=== PATIENT | female | born 1990 | race Caucasian/White ===

== ENCOUNTER 2019-01-02 13:35 | Inpatient (IN) | payer SELFPAY ==
[2019-01-02 12:52] VITALS: BMI 26.7
[2019-01-02 13:57] VITALS: BMI 26.6
[2019-01-02] MEDS: Lactated Ringers 1,000 ML 50 ML IV (15:12)
[2019-01-02] MEDS: Oxytocin 30 units/NS 500 ml 30 UNITS/500 ML IV.SOLN IV (15:13)
[2019-01-02] MEDS: 0.9% Normal Saline 100 ML IV.SOLN. INTRA-UTER (15:30)
[2019-01-02 15:36] LABS: Hematocrit 37.1 % (37-47); Hemoglobin 12.3 g/dl (12.0-15.0); Mean Corp Hgb Conc 33.2 g/gl (32-36); Mean Corpuscular Hgb 30.8 pg (27.0-32.0); Mean Platelet Vol. 10.5 fl (6.2-12.0); Platelet Count 166 K/mm3 (150-450); RBC Distribution Width CV 14.1 % (11.6-14.6); Red Blood Count 3.99 M/mm3 (4.2-5.4)
[2019-01-02 15:37] LABS: Scan Indicated on CBC? Y/N NO
[2019-01-02 16:01] LABS: Hemoglobin A1c 4.8 % (4.2-6.3)
[2019-01-02 16:14] LABS: Rubella IgG 27.4 IU/mL
[2019-01-02] MEDS: Nalbuphine 10 MG/ML Ampul IV (20:52)
--- NOTE | 2019-01-02 23:20 | PCM.HP.OB ---
- Problem List (1) IUFD at 20 weeks or more of gestation Status: Acute History Date of Admission: 01/02/19 Final JULIA: 01/27/19 Gestational age: 36 Weeks and 3 Days History of this : This is a 28 year-old, at 36 weeks gestational age presents with decreased movement and suspected IUFD by her displayer merchandise Mami Bhatia. She denies any vaginal bleeding and has had care by her displayer merchandise, but no formal ultrasounds, bloodwork, or testing in the . she denies any complications. she was scanned in the office and no fht were seen and the fetus was measuring 2-3 weeks behind and with oligohydramnios. Medical History: Medical History (Last Updated 01/02/19 @ 12:59 by Sharla Briggs) No significant medical problems Surgical History: Surgical History (Last Updated 01/02/19 @ 12:59 by Sharla Briggs) No history of previous surgery Allergies No Known Allergies Allergy (Unverified 01/02/19 12:53) Home Medications: Home Medications Vits [Prenatabs FA] 1 tablet PO DAILY 01/02/19 Smoking Status: Never smoker Alcohol: None Number of Fetus(es): 1 Heart Tracing: none History Past Pregnancies: Past Pregnancies 3 previous term home deliveries spontaneous labor Expected Delivery Method: Spontaneous Vaginal Review of Systems Constitutional: Denies: Fever, Malaise Eyes: Denies: Blurred vision, Vision Change HEENT: Denies: Head Aches, Visual Changes Cardiovascular: Denies: Chest Pain, Palpitations Respiratory: Denies: Cough, Shortness of Breath, Wheezing Gastrointestinal: Denies: Abdominal Pain, Diarrhea, Nausea, Vomiting Genitourinary: Denies: Dysuria, Hematuria Musculoskeletal: Denies: Joint Pain, Muscle pain Skin: Denies: Lesions, Rash Neurological: Denies: Blurred vision, Focal weakness, Headaches Psychiatric: Denies: Anxiety, Depression Endocrine: Denies: Heat/ Cold Intolerance Hematologic/ Lymphatic: Denies: Easy Bruising, Easy Bleeding Physical Exam General: Alert, Cooperative, No apparent distress HEENT: Atraumatic, Normocephalic. Negative for: Thyromegaly, Lymphadenopathy Cardiovascular: Regular rate Lungs: Normal air movement Abdomen: Soft, Non Tender, Gravid Neurological: Deep Tendon Reflexes 2+/4 and Symmetrical, Neuro grossly intact. Negative for: Clonus SERVICE UNIT OPERATOR OIL WELL: Normal external genitalia. Negative for: Vulvar lesions Estimated gestational size: Small for gestational age Presentation: Cephalic Cervix Dilation (cm): 1 Assessment/Plan All Active Problems (Last Updated 01/02/19 @ 12:59 by Sharla Briggs) IUFD at 20 weeks or more of gestation (Acute) This is a 28 year-old, at 36 weeks gestational age presents with IUFD at 36 weeks discussed workup and routine testing, patient declined all but cbc, t and s, rubella, apl testing, hga1c, k b testing and placental pathology. pit and fb, and epi if desired.
--- NOTE | 2019-01-02 23:24 | HP.PCM_ITS ---
- Problem List (1) IUFD at 20 weeks or more of gestation Status: Acute History Date of Admission: 01/02/19 Final JULIA: 01/27/19 Gestational age: 36 Weeks and 3 Days History of this : This is a 28 year-old, at 36 weeks gestational age presents with decreased movement and suspected IUFD by her drainlayer Mami Bhatia. She denies any vaginal bleeding and has had care by her drainlayer, but no formal ultrasounds, bloodwork, or testing in the . she denies any complications. she was scanned in the office and no fht were seen and the fetus was measuring 2-3 weeks behind and with oligohydramnios. Medical History: Medical History (Last Updated 01/02/19 @ 12:59 by Sharla Briggs) No significant medical problems Surgical History: Surgical History (Last Updated 01/02/19 @ 12:59 by Sharla Briggs) No history of previous surgery Allergies No Known Allergies Allergy (Unverified 01/02/19 12:53) Home Medications: Home Medications Vits [Prenatabs FA] 1 tablet PO DAILY 01/02/19 Smoking Status: Never smoker Alcohol: None Number of Fetus(es): 1 Heart Tracing: none History Past Pregnancies: Past Pregnancies 3 previous term home deliveries spontaneous labor Expected Delivery Method: Spontaneous Vaginal Review of Systems Constitutional: Denies: Fever, Malaise Eyes: Denies: Blurred vision, Vision Change HEENT: Denies: Head Aches, Visual Changes Cardiovascular: Denies: Chest Pain, Palpitations Respiratory: Denies: Cough, Shortness of Breath, Wheezing Gastrointestinal: Denies: Abdominal Pain, Diarrhea, Nausea, Vomiting Genitourinary: Denies: Dysuria, Hematuria Musculoskeletal: Denies: Joint Pain, Muscle pain Skin: Denies: Lesions, Rash Neurological: Denies: Blurred vision, Focal weakness, Headaches Psychiatric: Denies: Anxiety, Depression Endocrine: Denies: Heat/ Cold Intolerance Hematologic/ Lymphatic: Denies: Easy Bruising, Easy Bleeding Physical Exam General: Alert, Cooperative, No apparent distress HEENT: Atraumatic, Normocephalic. Negative for: Thyromegaly, Lymphadenopathy Cardiovascular: Regular rate Lungs: Normal air movement Abdomen: Soft, Non Tender, Gravid Neurological: Deep Tendon Reflexes 2+/4 and Symmetrical, Neuro grossly intact. Negative for: Clonus BIOMEDICAL ENGINEERING TECHNOLOGIST: Normal external genitalia. Negative for: Vulvar lesions Estimated gestational size: Small for gestational age Presentation: Cephalic Cervix Dilation (cm): 1 Assessment/Plan All Active Problems (Last Updated 01/02/19 @ 12:59 by Sharla Briggs) IUFD at 20 weeks or more of gestation (Acute) This is a 28 year-old, at 36 weeks gestational age presents with IUFD at 36 weeks discussed workup and routine testing, patient declined all but cbc, t and s, rubella, apl testing, hga1c, k b testing and placental pathology. pit and fb, and epi if desired.
[2019-01-03] MEDS: Oxytocin 30 units/NS 500 ml 30 UNITS/500 ML IV.SOLN 334 UNITS IV (02:28)
--- NOTE | 2019-01-03 02:28 | PLAC_PTH ---
PATIENT: RASHEED PORRAS LOC: [facility] U#:[id number] AGE/SX: 28/F ROOM: WP021 RE01/02/[address]: Dr. Asiya Nolan MD : [id number] BED: 1 DIS: 01/03/2019 SPEC #: [id number] RECD: 01/03/19 08:26 STATUS: JACEY KEL #: [id number] ACE: 01/03/19 02:[address]: Asiya Nolan DEPT: SURGICAL PATHOLOGY RECD BY: Moses Gannon Tissues: Placenta, NOS Procedures: Surgery Specimen Level V HEADER OPERATION: Placenta PRE-OP DIAGNOSIS: Small for gestational age; demise TISSUE SUBMITTED: Placenta MICROSCOPIC DIAGNOSIS Placenta: Placental disc - third trimester placenta (293 gm). Membranes - no pathologic diagnosis. Umbilical cord - three blood vessels and no pathologic diagnosis. MALGORZATA:sumeet 01/07/19 MICROSCOPIC DESCRIPTION Slides are reviewed. GROSS DESCRIPTION SPECIMEN: PLACENTA / CLINICAL INFORMATION: A. Weight: Unavailable B. Gestational Age: 36 weeks C. Sex: Female PLACENTAL WEIGHT (POST FIXATION): 293 gm PLACENTAL DIMENSIONS: 14 x 12 x 3 cm PLACENTAL SHAPE: Usual ovoid PLACENTAL WEIGHT FOR GESTATIONAL AGE: <10th percentile MEMBRANES - Present A. Insertion: Marginal B. Site of rupture from edge: 6.5 cm from edge of placental disc C. Color of membrane: Wills-orozco D. Abnormalities: None UMBILICAL CORD - Present A. Color: Dusky orozco B. Insertion: Eccentric C. Length: 42 cm D. Diameter: 1.5 cm E. Number of vessels: Three F. Abnormalities: None PLACENTAL DISC - Present A. Color of surface: Wills-orozco B. surface abnormalities: None C. Maternal cotyledons: Intact with minimal tears D. Attached retro placental clot: No clot E. Cut surface: Dark red and spongy F. Lesions: None G. Separate clot: Absent SECTIONS SUBMITTED: 1. Umbilical cord ( end notched) 2. Placental membranes 3. Placental disc, and maternal surfaces 4. Placental disc, and maternal surfaces 5. Placental disc, and maternal surfaces AM:sumeet 01/06/19 TC:5 CPT: 40731
[2019-01-03] MEDS: Oxytocin 30 units/NS 500 ml 30 UNITS/500 ML IV.SOLN 167 UNITS IV (02:58)
--- NOTE | 2019-01-03 03:05 | PCM.OB.VAG ---
- Problem List (1) IUFD at 20 weeks or more of gestation Status: Acute Vaginal Delivery Maternal Presentation: Medically Indicated Induction Induction of labor secondary to IUFD Method of Induction: Pitocin, Cook Bulb Medical Reason for Induction: demise Amniotic Membrane Rupture Type: Artificial Amniotic Fluid Description: Bloody Final JULIA: 01/27/19 Gestational age: 36 Weeks and 4 Days Date of Procedure: 01/03/19 Pre-Operative Diagnosis: Induction of labor for IUFD Post-Operative Diagnosis: Same plus placental insufficiency and oligohydramnios Surgery/ Procedure Performed: Spontaneous Vaginal Delivery Type of Anesthesia: None Description of Procedure: Patient began pushing and delivered the head in the DARINEL presentation. The head was delivered atraumatically. The anterior and posterior shoulders delivered without complication followed by the rest of the and the was placed on the maternal abdomen. Cord was clamped and cut and gentle traction was applied to the cord and the placenta delivered spontaneously immediately following it was noted to be intact with three-vessel cord. The perineum and vagina were inspected and noted to have no laceration. EBL was 100 cc. Patient tolerated delivery well. The placenta was noted to be significantly decreased in size approximately one third that of a normal size placenta for this gestational age. No gross abnormalities were seen to suggest abruption or cord accident however oligohydramnios was seen in the office today upon time of confirmation of IUFD so cord compression/uteroplacental insufficiency is likely cause of . No gross abnormalities were seen Presentation: NARCISO Placental Delivery Description: Spontaneous Placenta Disposition: [facility] Cord Entanglement: None Estimated Blood Loss: 100 A gender: Female (1 minute): 0 (5 minute): 0 Episiotomy Description: None Laceration: None Medications given after delivery: IV Pitocin Complications: None
--- NOTE | 2019-01-03 03:08 | PCM.DCVAG ---
Discharge Diet: No Restrictions Discharge Activity: Return to Normal Activity, May not drive while taking narcotic pain medications., May Shower May resume sexual activity in: 4-6 weeks Call your doctor if your incision/area has: Continuous Slow Oozing, Sudden Increased Bleeding, Increased Pain/ Swelling, Increased Redness, Foul Smelling Discharge Additional Instructions: If you experience any of the following, contact your healthcare provider. Bleeding that soaks a pad every hour for 2 hours Fever 100.4 or higher Unrelieved incision or abdominal pain Swelling, redness, discharge or bleeding from your incision or episiotomy site Your incision begins to separate Problems urinating (including inability to urinate or burning while urinating). Visual changes Severe headache Flu-like symptoms Pain or redness in one of both of your breasts Pain, warmth, tenderness or swelling in your legs, especially the calf area Frequent nausea and vomiting Symptoms of depression or anxiety If you experience any of the following, call 911 or go to the nearest Emergency Room. Chest pain Problems breathing Seizure activity Partial or complete paralysis of a body part, slurred speech, weakness or drooping of the face, or a sudden inability to walk or hold your balance Recommendations for next management: Recommend at minimum growth ultrasound at 32 and 36 weeks and visits every 1-2 weeks from 32 weeks on, also recommend weekly nonstress tests to evaluate and placental status from 32 weeks on. Recommend delivery at 39-40 weeks next . Allergies/Adverse Reactions: Allergies No Known Allergies Allergy (Unverified 01/02/19 12:53) Medications to take at Discharge Vits [Prenatabs FA] 1 tablet PO DAILY 01/02/19 Please Follow Up With: Asiya Nolan MD - [phone] When: Call to make an appointment with your doctor in 6 weeks. If you had elevated Blood pressure or 4th degree laceration you will need to be seen in 2 weeks. Test Results: Test results from this visit will be discussed in further detail at your follow-up appointment, if applicable.
--- NOTE | 2019-01-03 03:11 | DCINST_ITS ---
Discharge Diet: No Restrictions Discharge Activity: Return to Normal Activity, May not drive while taking narcotic pain medications., May Shower May resume sexual activity in: 4-6 weeks Call your doctor if your incision/area has: Continuous Slow Oozing, Sudden Increased Bleeding, Increased Pain/ Swelling, Increased Redness, Foul Smelling Discharge Additional Instructions: If you experience any of the following, contact your healthcare provider. * Bleeding that soaks a pad every hour for 2 hours * Fever 100.4 or higher * Unrelieved incision or abdominal pain * Swelling, redness, discharge or bleeding from your incision or episiotomy site * Your incision begins to separate * Problems urinating (including inability to urinate or burning while urinating). * Visual changes * Severe headache * Flu-like symptoms * Pain or redness in one of both of your breasts * Pain, warmth, tenderness or swelling in your legs, especially the calf area * Frequent nausea and vomiting * Symptoms of depression or anxiety If you experience any of the following, call 911 or go to the nearest Emergency Room. * Chest pain * Problems breathing * Seizure activity * Partial or complete paralysis of a body part, slurred speech, weakness or drooping of the face, or a sudden inability to walk or hold your balance Recommendations for next management: Recommend at minimum growth ultrasound at 32 and 36 weeks and visits every 1-2 weeks from 32 weeks on, also recommend weekly nonstress tests to evaluate and placental status from 32 weeks on. Recommend delivery at 39-40 weeks next . Allergies/Adverse Reactions: Allergies No Known Allergies Allergy (Unverified 01/02/19 12:53) Medications to take at Discharge Vits [Prenatabs FA] 1 tablet PO DAILY 01/02/19 Please Follow Up With: Asiya Nolan MD - [phone] When: Call to make an appointment with your doctor in 6 weeks. If you had elevated Blood pressure or 4th degree laceration you will need to be seen in 2 weeks. Test Results: Test results from this visit will be discussed in further detail at your follow- up appointment, if applicable.
[2019-01-03] MEDS: 0.9% Saline Lock 10 ML Syringe IV (04:28)
[2019-01-03 07:37] VITALS: BP 109/77; PULSE 77; RESP 20; TEMP 36.7
[2019-01-03 08:25] LABS: Pathology Specimen OB SEE PATHOLOGY REPORT
--- NOTE | 2019-01-03 11:00 | CASEMGMT ---
Social Work Labor and Delivery Unit Reason for intervention: loss at 36 week loss. Summary: Met with patient/mother of baby (MOB) and father of baby (FOB) Brian Strong this date. Introduced to self and role at hospital. Offered condolences to parents on loss of baby. MOB and FOB are from [facility] and report to have a good support system in the area. Parents have 3 children at home: Greg (born in 2011), Angela (born in 2013) and Josiah (born in 2016). of recent loss did occur shortly after move to new home. FOB works on the family's land. MOB reports to be doing okay right now and reports to have people to talk with if needed. Will have some helpers at home going. FOB voiced interest in knowing how to talk to younger children about loss. Discussed how different ages can take in and accept information differently, and importance of being honest, but also letting the younger children guide conversation as to what the children are ready to hear. Provided parents with handout on tips about different developmental stages and what each stage often is able to understand about . Parents voiced appreciation for information and time offered today. Emotional support, silence, and reflection offered today. Also provided information on common grief reactions, self care and resources should MOB or FOB feel the need to search out additional support in the community related to grief and loss. Plan: MOB and FOB have hired a funeral driver and will be discharging home today. MOB will have support from family and friends at home going. Resource information provided for home going. No other services requested or indicated. -NATALIA Villar, LENS AND FRAMES PRESCRIPTION CLERK
[2019-01-03 11:16] VITALS: BP 112/62; PULSE 77; RESP 18; TEMP 36.7
[2019-01-04 12:14] LABS: Kleihauer-Betke Negative
== END 2019-01-03 12:20 | disposition home or self-care (01) | DRG 806 ==
PROVIDERS: Admitting Provider Obstetrics & Gynecology; Referring Provider Obstetrics & Gynecology; Visit Provider Obstetrics & Gynecology
DX: O36.4XX0 Maternal care for intrauterine death, not applicable or unspecified (principal); O41.03X0 Oligohydramnios, third trimester, not applicable or unspecified; Z37.1 Single stillbirth; Z3A.36 36 weeks gestation of pregnancy; O36.5130 Maternal care for known or suspected placental insufficiency, third trimester, not applicable or unspecified
CPT/HCPCS: 59050; 83036; 85027; 85460; 86762; 86850; 86900; 88307; 99218; J7120; A4216; G0378